=== PATIENT | female | born 1950 | race Caucasian/White ===

== ENCOUNTER → 2016-10-22 | Outpatient (REF) | payer OTHER | LOC: M LAB REF 08:37 | PROVIDERS: ATTEND Nurse Practitioner Adult Health | DX: R53.83 Other fatigue (principal) ==

== ENCOUNTER → 2016-12-28 | Outpatient (REF) | payer OTHER | LOC: M LAB REF 12:31 | PROVIDERS: ATTEND Physician Assistant | DX: J02.9 Acute pharyngitis, unspecified (principal) ==

== ENCOUNTER → 2017-03-25 | Outpatient (REF) | payer OTHER ==
[2017-03-25 18:46] LABS: INFLUENZA A AMPLIFICATION NEGATIVE (NEGATIVE); INFLUENZA B AMPLIFICATION NEGATIVE (NEGATIVE); RSV AMPLIFICATION POSITIVE (NEGATIVE)
== END ==
LOC: M LAB REF 17:51
DX: J11.1 Influenza due to unidentified influenza virus with other respiratory manifestations (principal)
CPT/HCPCS: 87631

== ENCOUNTER → 2017-11-18 | Outpatient (REF) | payer MEDICARE, OTHER ==
[2017-11-18 13:43] LABS: C REACTIVE PROTEIN QUANTITATIV 0.41 MG/DL (0.00-0.30)
[2017-11-20 00:06] LABS: HOMOCYST(E)INE SERUM 13.9 umol/L (0.0-15.0)
== END ==
LOC: M LAB REF 12:49
DX: M81.0 Age-related osteoporosis without current pathological fracture (principal); I10 Essential (primary) hypertension
CPT/HCPCS: 83090

== ENCOUNTER → 2020-09-06 | Outpatient (REF) | payer MEDICARE, OTHER | LOC: M LAB REF 11:22 | PROVIDERS: ATTEND Nurse Practitioner Adult Health | DX: Z51.81 Encounter for therapeutic drug level monitoring (principal) ==

== ENCOUNTER → 2020-10-01 | Outpatient (REF) | payer MEDICARE, OTHER | LOC: M LAB REF 16:26 | PROVIDERS: ATTEND Nurse Practitioner Adult Health | DX: M81.0 Age-related osteoporosis without current pathological fracture (principal); R53.83 Other fatigue ==

== ENCOUNTER → 2023-11-17 | Outpatient (REF) | payer MEDICARE, OTHER | LOC: M LAB REF 12:44 | PROVIDERS: ATTEND Nurse Practitioner Adult Health | DX: G62.9 Polyneuropathy, unspecified (principal) ==

== ENCOUNTER 2024-08-28 09:57 | Day surgery (SDC) | payer MEDICARE, OTHER ==
[~2024-08-28] VITALS: Ht 160 cm; Wt 60.3 kg
[~2024-08-28 09:57] MED LIST: AMLO1TAB24 PO; LOSA50TA28 PO; LR 1,000 ML IV SCH; SIMV10TA21 PO
[2024-08-28] MEDS ORDERED: MIDAZOLAM INJ 2 MG/2 ML VIAL As Ordered ONE (10:17)
[2024-08-28] MEDS: PHENYLEPHRINE 2.5% OPHTH SOL 2ML OD SCH (11:06)
[2024-08-28] MEDS: TETRACAINE 0.5% OPHTH SOLN 4ML OD SCH (11:06)
[2024-08-28] MEDS: FLURBIPROFEN 0.03% OPHTH SOLN 2.5 ML OD SCH (11:06)
[2024-08-28] MEDS: CYCLOPENTOLATE 1% OPHTH SOLN 2 ML BTL OD SCH (11:06)
[2024-08-28] MEDS: LIDOCAINE 1% SDV 5 ML VIAL As Ordered ONE (12:32)
[2024-08-28] MEDS: CEFUROXIME 1 MG/0.1 ML INTRACAMERAL INJ As Ordered ONE (12:32)
[2024-08-28 12:45] VITALS: BP 170/77; TEMP 98.6; O2SAT 98
== END 2024-08-28 13:00 | disposition home or self-care (01) ==
LOC: M SDC 09:57
PROVIDERS: ATTEND Ophthalmology
DX: H25.11 Age-related nuclear cataract, right eye (principal); I10 Essential (primary) hypertension; E78.00 Pure hypercholesterolemia, unspecified; Z79.899 Other long term (current) drug therapy; Z90.89 Acquired absence of other organs; Z82.49 Family history of ischemic heart disease and other diseases of the circulatory system
CPT/HCPCS: 66984; J0697; J2250; J3010; V2632

== ENCOUNTER 2024-09-11 08:55 | Day surgery (SDC) | payer MEDICARE, OTHER ==
[~2024-09-11] VITALS: Ht 160 cm; Wt 59.9 kg
[2024-09-11] MEDS: CYCLOPENTOLATE 1% OPHTH SOLN 2 ML BTL OS SCH (10:03)
[2024-09-11] MEDS: FLURBIPROFEN 0.03% OPHTH SOLN 2.5 ML OS SCH (10:03)
[2024-09-11] MEDS: PHENYLEPHRINE 2.5% OPHTH SOL 2ML OS SCH (10:03)
[2024-09-11] MEDS: TETRACAINE 0.5% OPHTH SOLN 4ML OS SCH (10:03)
[2024-09-11] MEDS ORDERED: MIDAZOLAM INJ 2 MG/2 ML VIAL As Ordered ONE (10:50)
[2024-09-11] MEDS: CEFUROXIME 1 MG/0.1 ML INTRACAMERAL INJ As Ordered ONE (11:49)
[2024-09-11] MEDS: LIDOCAINE 1% SDV 5 ML VIAL As Ordered ONE (11:49)
[2024-09-11 12:07] VITALS: BP 167/76; TEMP 98.1; O2SAT 97
== END 2024-09-11 12:23 | disposition home or self-care (01) ==
LOC: M SDC 08:55
PROVIDERS: ATTEND Ophthalmology
DX: H25.12 Age-related nuclear cataract, left eye (principal); I10 Essential (primary) hypertension; E78.00 Pure hypercholesterolemia, unspecified; Z79.899 Other long term (current) drug therapy; Z98.41 Cataract extraction status, right eye
CPT/HCPCS: 66984; J0697; J2250; J3010; V2632